=== PATIENT | male | born 1990 ===

== ENCOUNTER 2022-06-21 20:49 | Emergency (ER) | payer SELFPAY ==
[2022-06-21 20:51] VITALS: BP 159/102; PULSE 118; RESP 20; TEMP 37.1; O2SAT 100
--- NOTE | 2022-06-21 21:35 | PC.NURSE ---
patient observed leaving triage area
== END 2022-06-21 21:35 | disposition left against medical advice (07) ==
DX: R00.0 Tachycardia, unspecified (principal)
CPT/HCPCS: 99199